=== PATIENT | female | born 1965 | race Caucasian/White ===

== ENCOUNTER 2017-10-14 08:37 | Observation (INO) | payer BC ==
[~2017-10-14] VITALS: Ht 162.6 cm; Wt 80.8 kg
[~2017-10-14 08:37] MED LIST: CARV6.252 PO; HYDR-3580 PO; IBUP1TAB7 PO; NEXI40CA PO; TRAZ100T10 PO
[2017-10-14] MEDS ORDERED: METOPROLOL TARTRATE 25 MG TAB PO PRN (09:30)
[2017-10-14] MEDS ORDERED: ceFAZolin 2 GM PREMIX 50 ML IV SCH (09:30)
[2017-10-14] MEDS ORDERED: POVIDONE IODINE 5% (ANTISEPSIS KIT) 4 APPLICATIONS EACH NARE PRN (09:30)
[2017-10-14] MEDS ORDERED: SODIUM CHLORID 0.9% 500 ML IV PRN (09:30)
[2017-10-14] MEDS ORDERED: CHLORHEXIDINE GLUCONATE 2 % 1 PACK (2 CLOTHS) TOPICAL PRN (09:30)
[2017-10-14] MEDS: LACTATED RINGER'S 1000 ML IV PRN ×2 (10:15→18:19)
[2017-10-14] MEDS ORDERED: ACETAMINOPHEN 1000 MG/100 ML 100 ML IV ONE (11:36)
[2017-10-14] MEDS ORDERED: BUPIVACAINE/EPINEPHRINE 0.25% PF 30 ML VIAL ONE (11:43)
[2017-10-14] MEDS ORDERED: EXPAREL PERI-ARTICULAR INJECTION (TOTAL VOL. 60 ML) P-ARTICULR SCH ×2 (15:00)
[2017-10-14] MEDS ORDERED: DO NOT ADM ANY ANTICOAGULANT DRUGS PRN (15:08)
[2017-10-14] MEDS ORDERED: EXPAREL PERI-ARTICULAR INJECTION (TOTAL VOL. 60 ML) INFIL SCH ×2 (15:15)
--- NOTE | 2017-10-14 15:28 | HHI.PR ---
Immediate Post Op Note Procedure Date: Oct 14, 2017 Pre Op Diagnosis: abdominal pain, umbilical hernia Post Op Diagnosis: same, adhesions Surgeon: Andre Diehl MD Icing And Glaze Maker(s): none Procedure: dx lap, lap joey, open umbilical hernia repair Findings: adhesions, small umbilical hernia Complications: none Specimen(s) removed: none Estimated blood loss: 15cc Anesthesia: General Drains: None Patient to: PACU Patient Condition: Good Andre Diehl MD Oct 14, 2017 15:28
[2017-10-14] MEDS ORDERED: *ONDANSETRON 4 MG VIAL PERIprocedural Use ONLY ONE (15:36)
[2017-10-14] MEDS ORDERED: oxyCODONE/ACETAMINOPHEN 5 MG/325 MG TAB PO PRN ×2 (16:45)
[2017-10-14] MEDS ORDERED: SODIUM CHLORIDE 0.9% FLUSH 10 ML FLUSH IV FLUSH PRN (16:45)
[2017-10-14] MEDS: SODIUM CHLOR 0.9% 1000 ML INJ 1,000 ML IV SCH (17:15)
[2017-10-14 17:30] VITALS: BP 154/88; PULSE 60; RESP 16; TEMP 95.4; O2SAT 95
[2017-10-14] MEDS: ONDANSETRON HCL 4 MG/2 ML VIAL IV PUSH PRN (18:08)
[2017-10-14] MEDS: SODIUM CHLORIDE 0.9% FLUSH 10 ML FLUSH IV FLUSH SCH (20:08)
[2017-10-14] MEDS: CARVEDILOL 6.25 MG TAB PO SCH (20:09)
[2017-10-14] MEDS ORDERED: traZODone HCL 100 MG TAB PO SCH (21:00)
[2017-10-14 21:37] VITALS: BP 153/97; PULSE 78; RESP 20; TEMP 96.6; O2SAT 97
[2017-10-15 03:39] VITALS: BP 130/89; PULSE 71; RESP 20; TEMP 96.5; O2SAT 97
[2017-10-15] MEDS: ONDANSETRON HCL 4 MG/2 ML VIAL IV PUSH PRN (05:34)
[2017-10-15] MEDS: SODIUM CHLOR 0.9% 1000 ML INJ 1,000 ML IV SCH (07:00)
--- NOTE | 2017-10-15 07:00 | MP ---
cc: GEMA DIEHL MD DATE OF SURGERY 10/14/2017 PREOPERATIVE DIAGNOSIS Abdominal pain, nausea, vomiting, umbilical hernia. POSTOPERATIVE DIAGNOSIS Abdominal pain, nausea, vomiting, umbilical hernia, adhesions. PROCEDURE PERFORMED 1. Diagnostic laparoscopy 2. Laparoscopic lysis of adhesions 3. Open umbilical hernia repair SURGEON Dr. Gema Diehl MOLDING MACHINE OPERATOR See OR sheet ANESTHESIA GETA IV FLUIDS See anesthesia sheet ESTIMATED BLOOD LOSS 15 cc DRAINS None COMPLICATIONS None WOUND CLASSIFICATION Clean FINDINGS Several adhesions to the anterior abdominal wall noted. The liver, stomach, small bowel, and colon without other evidence of significant abnormality. Noted to be an umbilical hernia. INDICATIONS The patient is a 52-year-old female who presents with chronic abdominal pain, nausea and vomiting. The patient states this has been progressive. She has had several workups including radiologic studies and CT scans and endoscopies without evidence of significant abnormality other than some gastritis and small polyps noted on endoscopies. The patient was noted to have a small umbilical hernia which was causing her a fair amount of pain. The patient also did note the nausea and vomiting as well. Discussed with the patient in detail regarding possible operative intervention. I further discussed that since patient has had multiple surgeries including hysterectomy and appendectomy, she may have some intra-abdominal adhesions. However, I did fully discussed that the umbilical hernia repair would likely improve her umbilical pain and May not resolve her nausea, vomiting or other complaints. She is fully aware of this, however would like to proceed with operative intervention to explore for any pathologic abnormality and get an umbilical hernia repair also. Patient with mild rectus diastasis as well. I discussed with her regarding her diastases that this is typically a nonoperative management. DETAILS OF THE PROCEDURE The patient taken to the operating room suite, placed in the supine position, prepped and draped in the usual sterile fashion after induction of general endotracheal anesthesia. A brief time-out done stating correct patient, procedure and surgical site. We were all in agreement with this. Attention first directed to the left upper quadrant where a small stab aurora incision was made. A 5-mm port was placed after Veress needle and saline drop test confirmation. The abdomen insufflated to 15-mm pneumoperitoneum. The Veress needle was exchanged for a 5-mm Visiport done under direct visualization entering the abdomen safely. There was no evidence of injury. Two other ports placed including a 5-mm left mid quadrant and a left lower quadrant. On inspection, there was noted to be omentum that was adhered to the anterior abdominal wall and several other adhesions including involving the small bowel. These adhesions and omentum were mobilized and lysed in order to fully facilitate removal of the scar tissue. There was noted to be a small umbilical hernia as well. After running the small bowel from the terminal ileum to the ligament of Treitz after identifying and running the colon, examining the stomach and peritoneal surfaces, there was no evidence of significant other abnormality. Several pictures were taken. The abdomen was then desufflated and a procedure with open umbilical hernia repair was done. A small infraumbilical curvilinear incision was made with a 15 blade. Further dissection with electro Bovie cautery. The hernia was identified and dissected out to its sac also down to good fascial edges. The sac was removed again noted to be somewhat small. Small omental fat was also removed as well. The defect was then closed with two #1 Prolene sutures in a [id number] fashion. Irrigation done to the wound cavity. The wound and the port sites were injected with Exparel as well. The umbilicus was then re-tacked down and 3-0 Vicryl was used followed by 4-0 Monocryl subcuticular suture. All ports were closed as well with 4-0 Monocryl. Again, Exparel injected at all port sites. All lap and instrument counts were correct at the end of the procedure. The patient tolerated the procedure well. There was no intraoperative complication. The patient was extubated and taken to the PACU. MD MARIUSZ Antony/LIBRADO /7:52 PM /6:39 AM BETINA
[2017-10-15 08:00] VITALS: BP 130/86; PULSE 77; RESP 18; TEMP 96.2; O2SAT 97
[2017-10-15] MEDS: CARVEDILOL 6.25 MG TAB PO SCH (08:48)
[2017-10-15] MEDS: SODIUM CHLORIDE 0.9% FLUSH 10 ML FLUSH IV FLUSH SCH (09:00)
[2017-10-15] MEDS ORDERED: PANTOPRAZOLE SOD 40 MG DELAYED RELEASE TAB PO SCH (09:00)
[2017-10-15 12:00] VITALS: BP 116/72; PULSE 63; RESP 17; TEMP 96.9; O2SAT 96
--- NOTE | 2017-10-15 14:27 | HHI.DS ---
Discharge Summary Admission Date Oct 14, 2017 at 16:46 Discharge Date: Oct 15, 2017 Admitting Diagnosis Brief History 52 year old female POD1 diagnostic laparoscopy; laparoscopic lysis of adhesions ; open repair of umbilical hernia PE at Discharge Alert awake Cardio: RRR Resp:CTAB Abd: incisions c/d/i Hospital Course This is a 52-year-old female POD1 diagnostic laparoscopy, laparoscopic lysis of adhesions, open repair of umbilical hernia. The patient was able to tolerate a regular diet. Patient's pain was controlled with oral pain medications. The patient was discharged in stable condition with instructions to follow-up in the discharge information. Pt Condition on Discharge: Good Discharge Disposition: Discharge Home Discharge Instructions DIET: Follow Instructions for: As Tolerated, No Restrictions Activities you can perform: See Additionl Instruction Other Activity Instructions: no heavy lifting >15 lbs Kay Haynes Oct 15, 2017 14:27
== END 2017-10-15 14:39 | disposition home or self-care (01) ==
LOC: HSDC 08:37 → HSDI 16:46 → N07A 17:38
PROVIDERS: ADMIT Surgery; ATTEND Surgery
DX: K42.9 Umbilical hernia without obstruction or gangrene (principal); R11.2 Nausea with vomiting, unspecified; K66.0 Peritoneal adhesions (postprocedural) (postinfection)
CPT/HCPCS: 00750; 49585; C9290; G0378; J0131; J2405; J7030; J7120

== ENCOUNTER 2018-01-09 08:37 | Emergency (ER) | payer BC, OTHER ==
[~2018-01-09] VITALS: Ht 162.6 cm; Wt 79.0 kg
[2018-01-09 08:45] VITALS: BP 175/101; PULSE 80; RESP 16; TEMP 97.3; O2SAT 98
[2018-01-09 09:29] LABS: BASOPHIL % 0.4 % (0.0-2.0); EOSINOPHIL # 0.2 TH/MM3 (0-0.4); EOSINOPHIL % 2.7 % (0.0-4.0); HEMATOCRIT 44.5 % (35.0-46.0); HEMOGLOBIN 15.8 GM/DL (11.6-15.3); LYMPHOCYTE # 2.6 TH/MM3 (1.0-4.8); MEAN CELL VOLUME 87.9 FL (80.0-100.0); MEAN CORPUSCULAR HEMOGLOBIN 31.2 PG (27.0-34.0); MEAN CORPUSCULAR HGB CONC 35.5 % (32.0-36.0); MEAN PLATELET VOLUME 8.8 FL (7.0-11.0); MONO % 5.8 % (0.0-8.0); MONOCYTE # 0.4 TH/MM3 (0-0.9); NEUT % 55.1 % (16.0-70.0); PLATELET COUNT 177 TH/MM3 (150-450); RED BLOOD COUNT 5.06 MIL/MM3 (4.00-5.30); RED CELL DISTRIBUTION WIDTH 13.5 % (11.6-17.2); WHITE BLOOD COUNT 7.3 TH/MM3 (4.0-11.0)
[2018-01-09 09:40] LABS: BILIRUBIN, URINE NEG (NEG); BLOOD, URINE NEG (NEG); GLUCOSE,URINE NEG (NEG); KETONE, URINE NEG (NEG); MUCUS URINE FEW /lpf (OCC); NITRITE,URINE NEG (NEG); PH, URINE 5.5 (5.0-8.5); SQUAMOUS EPITHELIAL CELL URINE <1 /hpf (0-5); URINE COLOR YELLOW (YELLW/STRAW); URINE LEUKOCYTE ESTERASE NEG (NEG)
[2018-01-09] MEDS ORDERED: KETOROLAC TROMETHAMINE 30 MG/ML (IVP) VIAL IV PUSH ONE (09:45)
--- NOTE | 2018-01-09 09:52 | PD ---
HPI Chief Complaint: Abdominal Pain Time Seen by Provider: 09:32 Travel History International Travel<30 days: No Contact w/Intl Traveler<30days: No Traveled to known affect area: No History of Present Illness HPI Patient is a 52-year-old female presents emergency department left lower quadrant abdominal pain for the past 3 days. Patient states a few months ago she had her hernia reduced and repaired periumbilically and thought this might have something to do with it. Denies any nausea vomiting blood in stool diarrhea constipation but states that she did have a lot of abdominal cramping prior to moving her bowels yesterday. States this never happened to her before. No history of diverticulitis or diverticulosis. No fevers. States the pain is moderate, gradually worsening, context and associated signs symptoms as above PFSH Past Medical History Asthma: No Atrial Fibrillation: Yes Blood Disorders: No Anxiety: Yes Depression: No Heart Rhythm Problems: No Cancer: Yes (skin cancer, has precancerous cells) Cardiac Catheterization: No Cardiovascular Problems: No High Cholesterol: No Chemotherapy: No Chest Pain: No Congestive Heart Failure: No COPD: No Cerebrovascular Accident: No Diabetes: No Diminished Hearing: No Endocrine: No Gastrointestinal Disorders: Yes Genitourinary: Yes (several kidney infections previous few months) Hepatitis: No Hiatal Hernia: No Hypertension: Yes Immune Disorder: No Musculoskeletal: No Neurologic: Yes (l arm nerve damage ) Psychiatric: No Reproductive: Yes (removal of uterus, fallopian tubes) Respiratory: No Radiation Therapy: No Sleep Apnea: No Thyroid Disease: No Ulcer: Yes ?: Unknown Menopausal: Yes : 2 Para: 2 Miscarriage: 0 : 0 Ovarian Cysts: Yes (1 removed) Past Surgical History Abdominal Surgery: Yes (POLYP REMOVAL; HERNIA SURGERY OCTOBER 2017) AICD: No Appendectomy: Yes (1980) Cardiac Surgery: No Section: Yes Cholecystectomy: Yes Coronary Artery Bypass Graft: No Ear Surgery: No Endocrine Surgery: No Eye Surgery: No Gynecologic Surgery: Yes (4 C SECTIONS) Hysterectomy: Yes Joint Replacement: No Oral Surgery: No Pacemaker: No Thoracic Surgery: No Other Surgery: Yes (csection, upper to lower colonoscopy, endoscopy, gallbladder, appendix) Family History Family Myocardial Infarction: Yes (DAD) Social History Alcohol Use: Yes (rare) Tobacco Use: Yes (1 PACK ) Substance Use: Yes (weed) Allergies-Medications (Allergen,Severity, Reaction): Coded Allergies: No Known Allergies (Verified Allergy, Unknown, 10/14/17) Reported Meds & Prescriptions Reported Meds & Active Scripts Active Percocet (Oxycodone-Acetaminophen) 10-325 mg Tab 1 Tab PO Q6H PRN Reported Trazodone (Trazodone HCl) 100 Mg Tablet 100 Mg PO HS Carvedilol 6.25 Mg Tab 12.5 Mg PO BID Review of Systems Except as stated in HPI: all other systems reviewed are Neg Physical Exam Narrative GENERAL: Well-developed well-nourished, minimal discomfort SKIN: Focused skin assessment warm/dry. HEAD: Atraumatic. Normocephalic. EYES: Pupils equal and round. No scleral icterus. No injection or drainage. ENT: No nasal bleeding or discharge. Mucous membranes pink and moist. NECK: Trachea midline. No JVD. CARDIOVASCULAR: Regular rate and rhythm. No murmur appreciated. RESPIRATORY: No accessory muscle use. Clear to auscultation. Breath sounds equal bilaterally. GASTROINTESTINAL: Abdomen soft, non-tender, nondistended. Hepatic and splenic margins not palpable. She is some mild tenderness on the left flank, no CVA tenderness, no rebound no percussive tenderness, no hernias, no rash no wound seen on her person. MUSCULOSKELETAL: No obvious deformities. No clubbing. No cyanosis. No edema. NEUROLOGICAL: Awake and alert. No obvious cranial nerve deficits. Motor grossly within normal limits. Normal speech. PSYCHIATRIC: Appropriate mood and affect; insight and judgment normal. Data Data Last Documented VS Vital Signs Date Time Temp Pulse Resp B/P (MAP) Pulse Ox O2 Delivery O2 Flow Rate FiO2 01/09/18 12:36 01/09/18 08:45 97.3 80 16 98 Room Air Orders Orders Complete Blood Count With Diff (01/09/18 08:59) Comprehensive Metabolic Panel (01/09/18 08:59) Urinalysis - C+S If Indicated (01/09/18 08:59) Iv Access Insert/Monitor (01/09/18 08:59) Lipase (01/09/18 08:59) Ketorolac Inj (Toradol Inj) (01/09/18 09:45) Ct Abd/Pel W Iv Contrast(Rout) (01/09/18 ) Ondansetron Inj (Zofran Inj) (01/09/18 11:00) Ondansetron Inj (Zofran Inj) (01/09/18 10:50) Iohexol 350 Inj (Omnipaque 350 Inj) (01/09/18 11:11) Morphine Inj (Morphine Inj) (01/09/18 11:15) Ed Discharge Order (01/09/18 12:06) Labs Laboratory Tests Test 01/09/18 09:05 01/09/18 09:09 Urine Color YELLOW Urine Turbidity CLEAR Urine pH 5.5 Urine Specific [place] 1.019 Urine Protein NEG mg/dL Urine Glucose (UA) NEG mg/dL Urine Ketones NEG mg/dL Urine Occult Blood NEG Urine Nitrite NEG Urine Bilirubin NEG Urine Urobilinogen LESS THAN 2.0 MG/DL Urine Leukocyte Esterase NEG Urine RBC 1 /hpf Urine WBC 1 /hpf Urine Squamous Epithelial Cells <1 /hpf Urine Mucus FEW /lpf Microscopic Urinalysis Comment CULT NOT INDICATED White Blood Count 7.3 TH/MM3 Red Blood Count 5.06 MIL/MM3 Hemoglobin 15.8 GM/DL Hematocrit 44.5 % Mean Corpuscular Volume 87.9 FL Mean Corpuscular Hemoglobin 31.2 PG Mean Corpuscular Hemoglobin Concent 35.5 % Red Cell Distribution Width 13.5 % Platelet Count 177 TH/MM3 Mean Platelet Volume 8.8 FL Neutrophils (%) (Auto) 55.1 % Lymphocytes (%) (Auto) 36.0 % Monocytes (%) (Auto) 5.8 % Eosinophils (%) (Auto) 2.7 % Basophils (%) (Auto) 0.4 % Neutrophils # (Auto) 4.0 TH/MM3 Lymphocytes # (Auto) 2.6 TH/MM3 Monocytes # (Auto) 0.4 TH/MM3 Eosinophils # (Auto) 0.2 TH/MM3 Basophils # (Auto) 0.0 TH/MM3 CBC Comment DIFF FINAL Differential Comment Blood Urea Nitrogen 15 MG/DL Creatinine 0.83 MG/DL Random Glucose 144 MG/DL Total Protein 7.2 GM/DL Albumin 3.7 GM/DL Calcium Level 8.9 MG/DL Alkaline Phosphatase 96 U/L Aspartate Amino Transf (AST/SGOT) 23 U/L Alanine Aminotransferase (ALT/SGPT) 40 U/L Total Bilirubin 0.4 MG/DL Sodium Level 140 MEQ/L Potassium Level 3.9 MEQ/L Chloride Level 110 MEQ/L Carbon Dioxide Level 22.8 MEQ/L Anion Gap 7 MEQ/L Estimat Glomerular Filtration Rate 72 ML/MIN Lipase 250 U/L [facility] Medical Decision Making Medical Screen Exam Complete: Yes Emergency Medical Condition: Yes Differential Diagnosis Diverticulitis, diverticulosis, hernia unlikely, obstruction unlikely, possibility for muscular wall pain, possibility for shingles prodrome. Narrative Course Next patient room to the emergency department, pain medicine given and she is beginning to feel better still somewhat uncomfortable, labs are reassuring and the CAT scan of her abdomen was performed shows following results: Last 24 hours Impressions Abdomen/Pelvis CT 01/09/18 0000 Signed Impressions: Service Date/Time: Tuesday, January 09, 2018 10:59 - CONCLUSION: 1. There are few scattered colonic diverticula without significant inflammatory change. 2. Hepatic steatosis. 3. Atherosclerosis. Zak Varma MD The results were discussed with the patient, no definitive cause of her abdominal pain yet established with the patient appears well. At this time she is stable for discharge. Diagnosis Primary Impression: Abdominal pain Med/Other Pt SpecificInfo: Prescription(s) given Scripts Oxycodone-Acetaminophen (Percocet) 10-325 mg Tab 1 TAB PO Q6H Y for PAIN, #15 TAB 0 Refills Prov: Sergo Parsons MD 01/09/18 Disposition: 01 DISCHARGE HOME Condition: Stable Sergo Parsons MD Jan 09, 2018 09:52
[2018-01-09 10:04] LABS: ALT (GPT) 40 U/L (10-53)
[2018-01-09 10:06] LABS: ALKALINE PHOSPHATASE 96 U/L (45-117); TOTAL BILIRUBIN ADULT 0.4 MG/DL (0.2-1.0); TOTAL PROTEIN 7.2 GM/DL (6.4-8.2)
[2018-01-09 10:15] LABS: ALBUMIN 3.7 GM/DL (3.4-5.0); AST (GOT) 23 U/L (15-37); BICARBONATE 22.8 MEQ/L (21.0-32.0); BLOOD UREA NITROGEN 15 MG/DL (7-18); CALCIUM 8.9 MG/DL (8.5-10.1); CHLORIDE 110 MEQ/L (98-107); CREATININE 0.83 MG/DL (0.50-1.00); GLOMERULAR FILTRATION RATE 72 ML/MIN (>89); GLUCOSE,RANDOM 144 MG/DL (74-106); SODIUM (NA) 140 MEQ/L (136-145)
[2018-01-09] MEDS ORDERED: ONDANSETRON HCL 4 MG/2 ML VIAL ONE (10:50)
[2018-01-09] MEDS ORDERED: ONDANSETRON HCL 4 MG/2 ML VIAL IV PUSH ONE (11:00)
[2018-01-09] MEDS ORDERED: IOHEXOL 350 MG/ML 10 ML VIAL (for RAD DIAG) IVCONTRAST ONE (11:11)
[2018-01-09] MEDS ORDERED: MORPHINE SULFATE 4 MG/ML INJ IV PUSH ONE (11:15)
--- NOTE | 2018-01-09 11:26 | RADRPT ---
EXAM DATE/TIME: 01/09/2018 10:59 [facility] COMPARISON: CT ABDOMEN & PELVIS W CONTRAST, August 10, 2017, 15:44. INDICATIONS : Left lower abdomen pain for three days. IV CONTRAST: 81 cc Omnipaque 350 (iohexol) IV ORAL CONTRAST: No oral contrast ingested. RADIATION DOSE: 11.82 CTDIvol (mGy) MEDICAL HISTORY : Hypertension. skin cancer SURGICAL HISTORY : Hysterectomy. Appendectomy.Cholecystectomy. ENCOUNTER: Initial ACUITY: 3 days PAIN SCALE: 7/10 LOCATION: Left lower quadrant TECHNIQUE: Volumetric scanning of the abdomen and pelvis was performed. Using automated exposure control and ad justment of the mA and/or kV according to patient size, radiation dose was kept as low as reasonably achievable to obtain optimal diagnostic quality images. DICOM format image data is available electro nically for review and comparison. FINDINGS: LOWER LUNGS: The visualized lower lungs are clear. LIVER: There is diffuse decreased attenuation of the liver. The patient is status post cholecystectomy. SPLEEN: Normal size without lesion. PANCREAS: Within normal limits. KIDNEYS: Normal in size and shape. There is no mass, stone or hydronephrosis. ADRENAL GLANDS: Within normal limits. VASCULAR: Atherosclerotic change is seen throughout the arterial system. An aneurysm is not present. BOWEL/MESENTERY: There are a few scattered colonic diverticula without inflammatory change. ABDOMINAL WALL: Within normal limits. RETROPERITONEUM: There is no lymphadenopathy. BLADDER: No wall thickening or mass. REPRODUCTIVE: The patient is status post hysterectomy. INGUINAL: There is no lymphadenopathy or hernia. MUSCULOSKELETAL: Within normal limits for patient age. CONCLUSION: 1. There are few scattered colonic diverticula without significant inflammatory change. 2. Hepatic steatosis. 3. Atherosclerosis. Zak Varma MD on January 09, 2018 at 11:19 Board Certified Radiologist. This report was verified electronically.
[2018-01-09] MEDS ORDERED: PERC10TA27 PO (12:13)
== END 2018-01-09 12:37 | disposition home or self-care (01) ==
LOC: NEPE 08:37
DX: R10.32 Left lower quadrant pain (principal); K76.0 Fatty (change of) liver, not elsewhere classified; K57.30 Diverticulosis of large intestine without perforation or abscess without bleeding; I10 Essential (primary) hypertension; F12.90 Cannabis use, unspecified, uncomplicated; Z72.0 Tobacco use
CPT/HCPCS: 74177; 80053; 81001; 83690; 85025; 96374; 96375; 99284; J1885; J2270; J2405; Q9967

== ENCOUNTER 2018-01-12 10:23 | Emergency (ER) | payer OTHER ==
[~2018-01-12] VITALS: Ht 162.6 cm; Wt 80.5 kg
[~2018-01-12 10:23] MED LIST changes: -HYDR-3580 PO; -IBUP1TAB7 PO; -NEXI40CA PO; +PERC10TA27 PO
[2018-01-12 10:41] VITALS: BP 142/95; PULSE 85; RESP 16; TEMP 98.3; O2SAT 98
--- NOTE | 2018-01-12 10:58 | PD ---
HPI Chief Complaint: Medical Clearance Time Seen by Provider: 10:47 Travel History International Travel<30 days: No Contact w/Intl Traveler<30days: No Traveled to known affect area: No History of Present Illness HPI 52-year-old female presents to the emergency room requesting a note to return to work. Patient came to the emergency room 3 days ago. At that time, she had lifted something heavy and was concerned she may have messed up her recent abdominal hernia repair. Her workup was negative. States since then she has had significant improvement in symptoms. She went back to work and mentioned that she could not lift anything heavy and her boss said she cannot come back without a work note. 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 PFSH Past Medical History Asthma: No Atrial Fibrillation: Yes Blood Disorders: No Anxiety: Yes Depression: No Heart Rhythm Problems: No Cancer: Yes (skin cancer, has precancerous cells) Cardiac Catheterization: No Cardiovascular Problems: No High Cholesterol: No Chemotherapy: No Chest Pain: No Congestive Heart Failure: No COPD: No Cerebrovascular Accident: No Diabetes: No Diminished Hearing: No Endocrine: No Gastrointestinal Disorders: Yes Genitourinary: Yes (several kidney infections previous few months) Hepatitis: No Hiatal Hernia: No Hypertension: Yes Immune Disorder: No Musculoskeletal: No Neurologic: Yes (l arm nerve damage ) Psychiatric: No Reproductive: Yes (removal of uterus, fallopian tubes) Respiratory: No Radiation Therapy: No Sleep Apnea: No Thyroid Disease: No Ulcer: Yes Menopausal: Yes : 2 Para: 2 Miscarriage: 0 : 0 Ovarian Cysts: Yes (1 removed) Past Surgical History Abdominal Surgery: Yes (POLYP REMOVAL; HERNIA SURGERY OCTOBER 2017) AICD: No Appendectomy: Yes (1980) Cardiac Surgery: No Section: Yes Cholecystectomy: Yes Coronary Artery Bypass Graft: No Ear Surgery: No Endocrine Surgery: No Eye Surgery: No Gynecologic Surgery: Yes (4 C SECTIONS) Hysterectomy: Yes Joint Replacement: No Oral Surgery: No Pacemaker: No Thoracic Surgery: No Other Surgery: Yes (csection, upper to lower colonoscopy, endoscopy, gallbladder, appendix) Social History Alcohol Use: Yes (rare) Tobacco Use: Yes (1 PACK ) Substance Use: Yes (weed) Allergies-Medications (Allergen,Severity, Reaction): Coded Allergies: No Known Allergies (Verified Allergy, Unknown, 01/12/18) Reported Meds & Prescriptions Reported Meds & Active Scripts Active Percocet (Oxycodone-Acetaminophen) 10-325 mg Tab 1 Tab PO Q6H PRN Reported Trazodone (Trazodone HCl) 100 Mg Tablet 100 Mg PO HS Carvedilol 6.25 Mg Tab 12.5 Mg PO BID Review of Systems Except as stated in HPI: all other systems reviewed are Neg Physical Exam Narrative GENERAL: Well-nourished, well-developed female no acute distress. Afebrile. Ambulatory. SKIN: Focused skin assessment warm/dry. HEAD: Normocephalic. EYES: No scleral icterus. No injection or drainage. NECK: Supple, trachea midline. No JVD or lymphadenopathy. CARDIOVASCULAR: Regular rate and rhythm without murmurs, gallops, or rubs. RESPIRATORY: Breath sounds equal bilaterally. No accessory muscle use. GASTROINTESTINAL: Abdomen soft, non-tender, nondistended. Data Data Last Documented VS Vital Signs Date Time Temp Pulse Resp B/P (MAP) Pulse Ox O2 Delivery O2 Flow Rate FiO2 01/12/18 10:41 98.3 85 16 142/95 (111) 98 MDM Medical Decision Making Medical Screen Exam Complete: Yes Emergency Medical Condition: Yes Medical Record Reviewed: Yes Differential Diagnosis Work note, work clearance, chronic abdominal pain Narrative Course 52-year-old female presents to the emergency room requesting a note to return to work. She came to the ER 3 days ago for acute on chronic abdominal pain. Workup was negative. States her boss will not let her work until she has clearance. Patient denies any ongoing symptoms. States she feels fine and would like to go back to work. Physical exam is reassuring. Patient given note. Told to return for worsening symptoms. She understands and agrees to plan. Diagnosis Primary Impression: H/O hernia repair Referrals: Primary Care Physician Patient Instructions: Umbilical Hernia (ED) Departure Forms: Tests/Procedures, Work Release Enter return to work date: Jan 12, 2018 Special Instructions: No heavy lifting. Additional Instructions: Rest and drink plenty of fluids. Follow-up with a primary care physician. Return to the emergency room for worsening symptoms. Disposition: 01 DISCHARGE HOME Condition: Stable Elisa Contreras Jan 12, 2018 10:58
== END 2018-01-12 11:21 | disposition home or self-care (01) ==
LOC: NEPK 10:23
DX: Z09 Encounter for follow-up examination after completed treatment for conditions other than malignant neoplasm (principal); R10.9 Unspecified abdominal pain; G89.29 Other chronic pain; F41.9 Anxiety disorder, unspecified; I48.91 Unspecified atrial fibrillation; I10 Essential (primary) hypertension; F17.200 Nicotine dependence, unspecified, uncomplicated; Z79.899 Other long term (current) drug therapy
CPT/HCPCS: 99281

== ENCOUNTER 2018-03-22 15:23 | Emergency (ER) | payer OTHER ==
[~2018-03-22] VITALS: Ht 162.6 cm; Wt 79.0 kg
[2018-03-22 15:56] VITALS: BP 126/80; PULSE 80; RESP 16; TEMP 98; O2SAT 98
[2018-03-22] MEDS ORDERED: EMPA1TAB PO (17:21)
--- NOTE | 2018-03-22 17:44 | PD ---
HPI Chief Complaint: Back/ Neck Pain or Injury Time Seen by Provider: 17:31 Travel History International Travel<30 days: No Contact w/Intl Traveler<30days: No Traveled to known affect area: No History of Present Illness HPI 52-year-old female presents to the emergency department with complaint of left mid back pain after slipping on a wet surface at [facility] yesterday, twisting and grabbing onto a cooler to keep herself from falling to the floor, and twisting her back. She did not fall to the floor. She did not hit her head or lost consciousness. Denies encopresis, incontinence, saddle anesthesias. Denies paresthesias, loss of sensation, decreased range of motion, decreased strength to all extremities. Denies fever, vomiting. Denies difficulty urinating or stooling. Rates pain 9/10. Describes it as a pinching sensation. Has tried heat, ice, and Aleve for symptom management. Worse with movement. Better with heat. Primary care provider is Dr. Lamar. No known allergies. History of hypertension and prediabetes. Has no other medical complaints. No other modifying factors or associated signs and symptoms. PFSH Past Medical History Asthma: No Atrial Fibrillation: Yes Blood Disorders: No Anxiety: Yes Depression: No Heart Rhythm Problems: No Cancer: Yes (skin cancer, has precancerous cells) Cardiac Catheterization: No Cardiovascular Problems: No High Cholesterol: No Chemotherapy: No Chest Pain: No Congestive Heart Failure: No COPD: No Cerebrovascular Accident: No Diabetes: Yes Patient Takes Glucophage: No Diminished Hearing: No Endocrine: No Gastrointestinal Disorders: Yes Genitourinary: Yes (several kidney infections previous few months) Hepatitis: No Hiatal Hernia: No Hypertension: Yes Immune Disorder: No Musculoskeletal: No Neurologic: Yes (l arm nerve damage ) Psychiatric: No Reproductive: Yes (removal of uterus, fallopian tubes) Respiratory: No Radiation Therapy: No Sleep Apnea: No Thyroid Disease: No Ulcer: Yes Tetanus Vaccination: Unknown Influenza Vaccination: Yes ?: Not Menopausal: Yes : 2 Para: 2 Miscarriage: 0 : 0 Ovarian Cysts: Yes (1 removed) Past Surgical History Abdominal Surgery: Yes (POLYP REMOVAL; HERNIA SURGERY OCTOBER 2017) AICD: No Appendectomy: Yes (1980) Cardiac Surgery: No Section: Yes Cholecystectomy: Yes Coronary Artery Bypass Graft: No Ear Surgery: No Endocrine Surgery: No Eye Surgery: No Gynecologic Surgery: Yes (4 C SECTIONS) Hysterectomy: Yes Joint Replacement: No Oral Surgery: No Pacemaker: No Thoracic Surgery: No Other Surgery: Yes (csection, upper to lower colonoscopy, endoscopy, gallbladder, appendix) Family History Family Myocardial Infarction: Yes (DAD) Social History Alcohol Use: Yes (rare) Tobacco Use: Yes (1 PPD) Substance Use: Yes (marijuana) Allergies-Medications (Allergen,Severity, Reaction): Coded Allergies: No Known Allergies (Verified Allergy, Unknown, 03/22/18) Reported Meds & Prescriptions Reported Meds & Active Scripts Active Ibuprofen 800 Mg Tab 800 Mg PO Q6HR PRN Robaxin (Methocarbamol) 500 Mg Tab 500 Mg PO QID PRN Reported Jardiance (Empagliflozin) 10 Mg Tab 10 Mg PO DAILY Trazodone (Trazodone HCl) 100 Mg Tablet 100 Mg PO HS Carvedilol 6.25 Mg Tab 12.5 Mg PO DAILY Review of Systems Except as stated in HPI: all other systems reviewed are Neg Physical Exam Narrative GENERAL: Well-nourished, well-developed femur patient, in no acute distress; afebrile, nontoxic-appearing SKIN: Warm and dry. HEAD: Atraumatic. Normocephalic. EYES: Pupils equal and round. No scleral icterus. No injection or drainage. ENT: Mucosa pink and moist. Airway patent. NECK: Trachea midline. CARDIOVASCULAR: Regular rate. RESPIRATORY: No accessory muscle use. GASTROINTESTINAL: Rounded.. MUSCULOSKELETAL: Bilateral lower extremities supple and non-tense with 2+ pedal pulses and sensory intact; with full range of motion and 5/5 strength. 2 + DTRs bilaterally. Active dorsiflexion and extension of bilateral feet. Bilateral straight leg raise is negative for low back pain. Ambulatory in room with normal gait. Sitting up in bed at 90. No obvious deformities. No clubbing. No cyanosis. No edema. BACK: No midline point tenderness on palpation of the thoracic or lumbar spine. Tenderness on palpation of musculature and paraspinal musculature of the left thoracic back. No obvious deformities. NEUROLOGICAL: Awake and alert. Oriented 3. No obvious cranial nerve deficits. Motor grossly within normal limits. Normal speech. Moves all extremities. 5/5 strength to all extremities. Sensory intact. PSYCHIATRIC: Appropriate mood and affect; insight and judgment normal. Data Data Last Documented VS Vital Signs Date Time Temp Pulse Resp B/P (MAP) Pulse Ox O2 Delivery O2 Flow Rate FiO2 03/22/18 15:56 98.0 80 16 126/80 (95) 98 Orders Orders Ibuprofen (Motrin) (03/22/18 17:45) Methocarbamol (Robaxin) (03/22/18 17:45) Ed Discharge Order (03/22/18 17:42) [facility] Medical Decision Making Medical Screen Exam Complete: Yes Emergency Medical Condition: Yes Medical Record Reviewed: Yes Differential Diagnosis Thoracic back strain, muscle strain of back, muscle spasm Narrative Course 52-year-old female physical exam and HPI consistent with strain of muscle of the left thoracic back and muscle spasms of the left thoracic back after injuring it while twisting and catching herself from falling yesterday while at [employer]. Denies encopresis, incontinence, saddle anesthesias. Neuro exam is unremarkable. Patient is ambulatory in the room with a normal gait. No midline tenderness on palpation of the thoracic or lumbar spine. Ibuprofen and Robaxin administered in the ER. Ibuprofen and Robaxin prescribed for home. Instructed patient to follow up with primary care provider. Patient verbalizes understanding and agreement with treatment plan. Patient is medically cleared and stable for discharge. Discussed reasons to return to the emergency department. Patient agrees with treatment plan. The patients vital signs are stable and the patient is stable for outpatient follow-up and treatment. Patient discharged home, stable and in no acute distress. Diagnosis Primary Impression: Strain of muscle and tendon of back wall of thorax, initial encounter Additional Impression: Spasm of thoracic back muscle Referrals: Primary Care Physician Patient Instructions: General Instructions, Muscle Spasm (ED), Thoracic Back Strain (ED) Additional Instructions: Tylenol or ibuprofen as directed and as needed for pain Robaxin as prescribed and as needed for muscle spasms Heating pad and/or ice to affected area to reduce pain Avoid aggravating activities; increase activity as tolerated Follow-up with primary care provider Return to emergency department immediately with worsening of symptoms Med/Other Pt SpecificInfo: Prescription(s) given Scripts Ibuprofen (Ibuprofen) 800 Mg Tab 800 MG PO Q6HR Y for PAIN, #30 TAB 0 Refills Prov: Tiff Nuno [employer] 03/22/18 Methocarbamol (Robaxin) 500 Mg Tab 500 MG PO QID Y for MUSCLE SPASM, #40 TAB 0 Refills Prov: Tiff Nuno 03/22/18 Disposition: 01 DISCHARGE HOME Condition: Stable Tiff Nuno March 22, 2018 17:44
[2018-03-22] MEDS ORDERED: METHOCARBAMOL 500 MG TAB PO ONE (17:45)
[2018-03-22] MEDS ORDERED: IBUPROFEN 800 MG TAB PO ONE (17:45)
[2018-03-22] MEDS ORDERED: IBUP1TAB7 PO (17:53)
[2018-03-22] MEDS ORDERED: ROBA500T PO (17:53)
== END 2018-03-22 17:57 | disposition home or self-care (01) ==
LOC: NEPD 15:23
DX: S29.012A Strain of muscle and tendon of back wall of thorax, initial encounter (principal); M62.830 Muscle spasm of back; X50.1XXA Overexertion from prolonged static or awkward postures, initial encounter; Y92.512 Supermarket, store or market as the place of occurrence of the external cause; I10 Essential (primary) hypertension; E11.9 Type 2 diabetes mellitus without complications; I48.91 Unspecified atrial fibrillation; F41.9 Anxiety disorder, unspecified; F17.210 Nicotine dependence, cigarettes, uncomplicated; Z85.828 Personal history of other malignant neoplasm of skin; Z79.899 Other long term (current) drug therapy
CPT/HCPCS: 99283

== ENCOUNTER 2018-03-29 10:35 | Emergency (ER) | payer OTHER ==
[~2018-03-29 10:35] MED LIST changes: +EMPA1TAB PO; +IBUP1TAB7 PO; -PERC10TA27 PO; +ROBA500T PO
[2018-03-29 10:40] VITALS: BP 151/82; PULSE 77; RESP 22; TEMP 98.7; O2SAT 98
[2018-03-29 10:56] VITALS: O2SAT 98
[2018-03-29 11:00] LABS: AUTOMATED NEUTROPHIL # 4.6 TH/MM3 (1.8-7.7); BASOPHIL # 0.1 TH/MM3 (0-0.2); BASOPHIL % 0.7 % (0.0-2.0); EOSINOPHIL # 0.2 TH/MM3 (0-0.4); HEMATOCRIT 47.8 % (35.0-46.0); HEMOGLOBIN 16.3 GM/DL (11.6-15.3); LYMPH % 34.3 % (9.0-44.0); LYMPHOCYTE # 2.7 TH/MM3 (1.0-4.8); MEAN CELL VOLUME 87.7 FL (80.0-100.0); MEAN CORPUSCULAR HEMOGLOBIN 29.8 PG (27.0-34.0); MEAN PLATELET VOLUME 9.2 FL (7.0-11.0); MONO % 3.2 % (0.0-8.0); MONOCYTE # 0.3 TH/MM3 (0-0.9); NEUT % 59.8 % (16.0-70.0); PLATELET COUNT 208 TH/MM3 (150-450); RED BLOOD COUNT 5.45 MIL/MM3 (4.00-5.30); RED CELL DISTRIBUTION WIDTH 12.3 % (11.6-17.2); WHITE BLOOD COUNT 7.9 TH/MM3 (4.0-11.0)
--- NOTE | 2018-03-29 11:04 | PD ---
HPI Chief Complaint: Cardiac Complaint Time Seen by Provider: 10:52 Travel History International Travel<30 days: No Contact w/Intl Traveler<30days: No Traveled to known affect area: No History of Present Illness HPI This 52-year-old female complaining of palpitations. She says chest is been pounding and she is having cramps in her body. She is feeling lightheaded. Symptoms got worse this morning and she was feeling a bit short of breath at times. She does smoke. She has no history of heart disease. She is on carvedilol for hypotension. This past week she was found to be prediabetic and was started on Jardiance on . She has been having some palpitations. She has been sweating a lot. 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 she does smoke cigarettes PFSH Past Medical History Asthma: No Atrial Fibrillation: Yes Blood Disorders: No Anxiety: Yes Depression: No Heart Rhythm Problems: No Cancer: Yes (skin cancer, has precancerous cells) Cardiac Catheterization: No Cardiovascular Problems: No High Cholesterol: No Chemotherapy: No Chest Pain: No Congestive Heart Failure: No COPD: No Cerebrovascular Accident: No Diabetes: Yes Patient Takes Glucophage: No Diminished Hearing: No Endocrine: No Gastrointestinal Disorders: Yes Genitourinary: Yes (several kidney infections previous few months) Hepatitis: No Hiatal Hernia: No Hypertension: Yes Immune Disorder: No Musculoskeletal: No Neurologic: Yes (l arm nerve damage ) Psychiatric: No Reproductive: Yes (removal of uterus, fallopian tubes) Respiratory: No Radiation Therapy: No Sleep Apnea: No Thyroid Disease: No Ulcer: Yes Tetanus Vaccination: Unknown ?: Not Menopausal: Yes : 2 Para: 2 Miscarriage: 0 : 0 Ovarian Cysts: Yes (1 removed) Past Surgical History Abdominal Surgery: Yes (POLYP REMOVAL; HERNIA SURGERY OCTOBER 2017) AICD: No Appendectomy: Yes (1980) Cardiac Surgery: No Section: Yes Cholecystectomy: Yes Coronary Artery Bypass Graft: No Ear Surgery: No Endocrine Surgery: No Eye Surgery: No Gynecologic Surgery: Yes (4 C SECTIONS) Hysterectomy: Yes Joint Replacement: No Oral Surgery: No Pacemaker: No Thoracic Surgery: No Other Surgery: Yes (csection, upper to lower colonoscopy, endoscopy, gallbladder, appendix) Family History Family Myocardial Infarction: Yes (DAD) Social History Alcohol Use: Yes (rare) Tobacco Use: Yes (1 PPD) Substance Use: Yes (marijuana) Allergies-Medications (Allergen,Severity, Reaction): Coded Allergies: No Known Allergies (Verified Allergy, Unknown, 03/29/18) Reported Meds & Prescriptions Reported Meds & Active Scripts Active Ibuprofen 800 Mg Tab 800 Mg PO Q6HR PRN Robaxin (Methocarbamol) 500 Mg Tab 500 Mg PO QID PRN Reported Carvedilol 12.5 Mg Tab 12.5 Mg PO BID Jardiance (Empagliflozin) 10 Mg Tab 10 Mg PO DAILY Trazodone (Trazodone HCl) 100 Mg Tablet 50-100 Mg PO HS Review of Systems General / Constitutional: No: Fever, Chills Eyes: No: Diploplia, Blurred Vision HENT: No: Headaches, Vertigo Cardiovascular: Positive: Chest Pain or Discomfort, Palpitations Respiratory: Positive: Shortness of Breath Gastrointestinal: Positive: Nausea Genitourinary: No: Urgency, Frequency Neurologic: No: Weakness Psychiatric: No: Anxiety, Depression Hematologic/Lymphatic: No: Easy Bruising Physical Exam Narrative GENERAL: Well-developed female SKIN: Focused skin assessment warm/dry. HEAD: Atraumatic. Normocephalic. EYES: Pupils equal and round. No scleral icterus. No injection or drainage. ENT: No nasal bleeding or discharge. Mucous membranes pink and moist. NECK: Trachea midline. No JVD. CARDIOVASCULAR: Regular rate and rhythm. No murmur appreciated. RESPIRATORY: No accessory muscle use. Clear to auscultation. Breath sounds equal bilaterally. GASTROINTESTINAL: Abdomen soft, non-tender, nondistended. Hepatic and splenic margins not palpable. MUSCULOSKELETAL: No obvious deformities. No clubbing. No cyanosis. No edema. NEUROLOGICAL: Awake and alert. No obvious cranial nerve deficits. Motor grossly within normal limits. Normal speech. PSYCHIATRIC: Appropriate mood and affect; insight and judgment normal. Data Data Last Documented VS Vital Signs Date Time Temp Pulse Resp B/P (MAP) Pulse Ox O2 Delivery O2 Flow Rate FiO2 03/29/18 12:08 61 18 119/79 (92) 98 Room Air 03/29/18 10:40 98.7 Orders Orders Electrocardiogram (03/29/18 10:43) Complete Blood Count With Diff (03/29/18 10:43) Basic Metabolic Panel (Bmp) (03/29/18 10:43) Ckmb (Isoenzyme) Profile (03/29/18 10:43) Troponin I (03/29/18 10:43) Chest, Single Ap (03/29/18 10:43) Iv Access Insert/Monitor (03/29/18 10:43) Ecg Monitoring (03/29/18 10:43) Oxygen Administration (03/29/18 10:43) Oximetry (03/29/18 10:43) Act Partial Throm Time (Ptt) (03/29/18 10:43) Prothrombin Time / Inr (Pt) (03/29/18 10:43) Urinalysis - C+S If Indicated (03/29/18 10:59) Ondansetron Odt (Zofran Odt) (03/29/18 11:30) Thyroid Stimulating Hormone (03/29/18 11:34) Promethazine (Phenergan) (03/29/18 12:30) Labs Laboratory Tests Test 03/29/18 10:55 03/29/18 11:15 White Blood Count 7.9 TH/MM3 Red Blood Count 5.45 MIL/MM3 Hemoglobin 16.3 GM/DL Hematocrit 47.8 % Mean Corpuscular Volume 87.7 FL Mean Corpuscular Hemoglobin 29.8 PG Mean Corpuscular Hemoglobin Concent 34.0 % Red Cell Distribution Width 12.3 % Platelet Count 208 TH/MM3 Mean Platelet Volume 9.2 FL Neutrophils (%) (Auto) 59.8 % Lymphocytes (%) (Auto) 34.3 % Monocytes (%) (Auto) 3.2 % Eosinophils (%) (Auto) 2.0 % Basophils (%) (Auto) 0.7 % Neutrophils # (Auto) 4.6 TH/MM3 Lymphocytes # (Auto) 2.7 TH/MM3 Monocytes # (Auto) 0.3 TH/MM3 Eosinophils # (Auto) 0.2 TH/MM3 Basophils # (Auto) 0.1 TH/MM3 CBC Comment DIFF FINAL Differential Comment Prothrombin Time 10.0 SEC Prothromb Time International Ratio 1.0 RATIO Activated Partial Thromboplast Time 24.3 SEC Blood Urea Nitrogen 14 MG/DL Creatinine 0.86 MG/DL Random Glucose 101 MG/DL Calcium Level 8.8 MG/DL Sodium Level 140 MEQ/L Potassium Level 3.9 MEQ/L Chloride Level 111 MEQ/L Carbon Dioxide Level 21.6 MEQ/L Anion Gap 7 MEQ/L Estimat Glomerular Filtration Rate 69 ML/MIN Total Creatine Kinase 82 U/L Troponin I LESS THAN 0.02 NG/ML Thyroid Stimulating Hormone 3rd Gen 1.390 uIU/ML Urine Color YELLOW Urine Turbidity CLEAR Urine pH 5.5 Urine Specific [place] 1.025 Urine Protein NEG mg/dL Urine Glucose (UA) 1000 OR GREATER mg/dL Urine Ketones NEG mg/dL Urine Occult Blood TRACE Urine Nitrite NEG Urine Bilirubin NEG Urine Urobilinogen 0.2 MG/DL Urine Leukocyte Esterase NEG Urine WBC 0-2 /hpf Urine Squamous Epithelial Cells 0-5 /hpf Urine Bacteria RARE /hpf Microscopic Urinalysis Comment CULT NOT INDICATED MDM Medical Decision Making Medical Screen Exam Complete: Yes Emergency Medical Condition: Yes Medical Record Reviewed: Yes Differential Diagnosis Differential includes like to light imbalance, hypothyroidism, uncontrolled diabetes Narrative Course Blood sugar is 101. Electrolytes are normal. EKG shows normal sinus rhythm. On a rhythm strip she is noted to have occasional APCs. Troponin is normal. I suspect some of her symptoms are related to her new medication with some more pre-existing. She is to follow-up with her own medical doctor tomorrow Diagnosis Primary Impression: Adverse drug reaction Disposition: DISCHARGE HOME Condition: Stable Jah Gerardo MD March 29, 2018 11:03
[2018-03-29 11:10] LABS: CHLORIDE 111 MEQ/L (98-107); SODIUM (NA) 140 MEQ/L (136-145)
[2018-03-29 11:13] LABS: BICARBONATE 21.6 MEQ/L (21.0-32.0); BLOOD UREA NITROGEN 14 MG/DL (7-18); CALCIUM 8.8 MG/DL (8.5-10.1); GLUCOSE,RANDOM 101 MG/DL (74-106)
[2018-03-29 11:17] LABS: CREATININE 0.86 MG/DL (0.50-1.00); GLOMERULAR FILTRATION RATE 69 ML/MIN (>89)
--- NOTE | 2018-03-29 11:20 | RADRPT ---
EXAM DATE/TIME: 03/29/2018 10:55 [facility] COMPARISON: CHEST SINGLE AP, August 14, 2016, 12:13. INDICATIONS : Chest pain. MEDICAL HISTORY : Hypertension. skin cancer SURGICAL HISTORY : Hysterectomy. Appendectomy.Cholecystectomy ENCOUNTER: Initial ACUITY: 4 - 6 days PAIN SCORE: 2/10 LOCATION: Bilateral chest FINDINGS: A single view of the chest demonstrates the lungs to be symmetrically aerated without evidence of mas s, infiltrate or effusion. The cardiomediastinal contours are unremarkable. Osseous structures are intact. CONCLUSION: 1. No acute cardiopulmonary disease. Sha Pace MD on March 29, 2018 at 11:18 Board Certified Radiologist. This report was verified electronically.
[2018-03-29 11:21] LABS: TROPONIN I LESS THAN 0.02 NG/ML (0.02-0.05)
[2018-03-29 11:29] LABS: BILIRUBIN, URINE NEG (NEG); BLOOD, URINE TRACE (NEG); GLUCOSE,URINE 1000 OR GREATER mg/dL (NEG); KETONE, URINE NEG (NEG); NITRITE,URINE NEG (NEG); PH, URINE 5.5 (5.0-8.5); URINE COLOR YELLOW (YELLW/STRAW); URINE LEUKOCYTE ESTERASE NEG (NEG)
[2018-03-29] MEDS ORDERED: ONDANSETRON ODT 4 MG TAB PO ONE (11:30)
[2018-03-29 11:33] LABS: SQUAMOUS EPITHELIAL CELL URINE 0-5 /hpf (0-5); WBC, URINE 0-2 /hpf (0-5)
[2018-03-29 11:34] LABS: BACTERIA, URINE RARE /hpf
[2018-03-29] MEDS ORDERED: CARV12.52 PO (12:02)
[2018-03-29 12:08] VITALS: BP 119/79; PULSE 61; RESP 18; O2SAT 98
[2018-03-29] MEDS ORDERED: PROMETHAZINE HCL 25 MG TAB PO ONE (12:30)
--- NOTE | 2018-03-29 19:43 | EKG ---
Date Performed: 03/29/2018 Time Performed: 10:43:43 PTAGE: 52 years EKG: Sinus rhythm Nonspecific ST-T wave changes. BORDERLINE ECG PREVIOUS TRACING : 04/30/2017 11.23 DOCTOR: Roger Krueger Interpretating Date/Time 03/29/2018 19:42:47
== END 2018-03-29 13:02 | disposition home or self-care (01) ==
LOC: PHED 10:35
DX: R00.2 Palpitations (principal); R42 Dizziness and giddiness; I48.91 Unspecified atrial fibrillation; E11.9 Type 2 diabetes mellitus without complications; I10 Essential (primary) hypertension; F41.9 Anxiety disorder, unspecified; F17.200 Nicotine dependence, unspecified, uncomplicated; F12.90 Cannabis use, unspecified, uncomplicated; Z79.899 Other long term (current) drug therapy
CPT/HCPCS: 71045; 80048; 81001; 82550; 84443; 84484; 85025; 85610; 85730; 93005; 99285; Q0169